=== PATIENT | female | born 1990 | race Caucasian/White ===

== ENCOUNTER 2022-11-01 05:22 | Inpatient (IN) | payer BC ==
[2022-10-31 10:05] LABS: Hemoglobin 13.3 g/dL (12.0-15.5); Platelet Count 140 10x3/uL (150-450)
[2022-10-31 10:46] LABS: Syphilis Antibody Nonreactive (Nonreactive); Syphilis Antibody Index 0.03 S/CO (<1.00 Non-Reactive)
[2022-10-31 10:47] LABS: HBSAg Index 0.09 S/CO (0-0.99); Hep B Surf Ag Non-Reactive S/CO (NonReactive)
[2022-11-01] MEDS ORDERED: Misoprostol 200 MCG TAB PR PRN (05:38)
[2022-11-01] MEDS ORDERED: Ondansetron PF 4 MG/2 ML Vial IVP PRN ×2 (05:38→06:58)
[2022-11-01] MEDS ORDERED: Bicitra 30 ML UDCUP PO PRN (05:38)
[2022-11-01] MEDS ORDERED: Promethazine HCl 25 MG/ML VIAL IM PRN ×2 (05:38→06:58)
[2022-11-01] MEDS ORDERED: hydrALAZINE 20 MG/ML VIAL SLOW IVP PRN (05:38)
[2022-11-01] MEDS ORDERED: Famotidine/PF 20 mg/2ml Vial SLOW IVP PRN (05:38)
[2022-11-01] MEDS ORDERED: Diphenoxylate HCl/Atropine Tablet PO PRN ×2 (05:38)
[2022-11-01] MEDS ORDERED: Carboprost 250 MCG/ML AMP IM PRN (05:38)
[2022-11-01] MEDS ORDERED: CEFAZOLIN 2 GM in Sodium Chloride 0.9% 100 ML IVPB SCH (05:38)
[2022-11-01 05:39] VITALS: BMI 42.7
[2022-11-01] MEDS ORDERED: NS w/ Oxytocin 30 units 500 ML IV SCH (05:45)
[2022-11-01] MEDS ORDERED: Moisturizing Cream (Eucerin) 113 GM JAR TOP PRN (06:58)
[2022-11-01] MEDS ORDERED: Ondansetron HCl/PF 4 MG/2 ML Vial IVP PRN (06:58)
[2022-11-01] MEDS ORDERED: Promethazine HCl 25 MG SUPP PR PRN (06:58)
[2022-11-01] MEDS ORDERED: Naloxone HCl 0.4 mg/ml Vial IVP PRN ×2 (06:58)
[2022-11-01] MEDS ORDERED: diphenhydrAMINE 50 MG/ML VIAL IVP PRN (06:58)
[2022-11-01] MEDS ORDERED: Naloxone HCl 0.4 mg/ml Vial IV PRN (06:58)
[2022-11-01] MEDS ORDERED: Fentanyl 100 MCG/2 ML VIAL SLOW IVP PRN (06:58)
[2022-11-01] MEDS ORDERED: Meperidine HCl/PF 25 MG/ML VIAL SLOW IVP PRN (06:58)
[2022-11-01] MEDS ORDERED: Communication Order-Pharmacy FS SCH (07:00)
[2022-11-01] MEDS ORDERED: Morphine PF 10 MG/10 ML VIAL ONE (07:08)
[2022-11-01] MEDS ORDERED: Oxytocin 10 UNITS/ML VIAL ONE (07:08)
[2022-11-01] MEDS ORDERED: ePHEDrine Sulfate 50 MG/10 ML VIAL ONE (07:08)
[2022-11-01] MEDS ORDERED: Phenylephrine 40 MG/NS 250 ML 250 ML ONE (07:08)
[2022-11-01] MEDS ORDERED: Ondansetron PF 4 MG/2 ML Vial ONE (07:08)
[2022-11-01] MEDS ORDERED: PHENYLEPHRINE-NS 100 MCG/ML 10 ML SYRINGE ONE (07:08)
[2022-11-01] MEDS ORDERED: Ketorolac Tromethamine 30 MG/ML VIAL ONE (07:08)
[2022-11-01] MEDS ORDERED: Simethicone Chewable 80 MG TAB PO PRN (11:58)
[2022-11-01] MEDS ORDERED: diphenhydrAMINE 25 MG CAP PO PRN (11:58)
[2022-11-01] MEDS ORDERED: Boostrix 0.5 ML (Tdap) VIAL (>/=7 yrs of age) IM ONE (11:58)
[2022-11-01] MEDS ORDERED: Methylergonovine 0.2 MG/ML VIAL IM PRN (11:58)
[2022-11-01] MEDS ORDERED: Acetaminophen 325 MG TAB PO PRN (11:58)
[2022-11-01] MEDS: Ketorolac Tromethamine 30 MG/ML VIAL IVP PRN ×2 (13:37→21:28)
[2022-11-01] MEDS ORDERED: Ketorolac Tromethamine 30 MG/ML VIAL IVP SCH (14:30)
[2022-11-01] MEDS: Docusate 100 MG CAP PO SCH (21:27)
[2022-11-01] MEDS: HYDROcodone/Acetaminophen 5/325 mg Tablet PO PRN (21:27)
[2022-11-01] MEDS: Lactated Ringer's 1,000 ML IV SCH ×2 (21:37→21:38)
[2022-11-01] MEDS: Ferrous Sulfate 325 MG TAB PO SCH (21:39)
[2022-11-02] MEDS: HYDROcodone/Acetaminophen 5/325 mg Tablet PO PRN ×6 (01:17→22:02)
[2022-11-02] MEDS: Lactated Ringer's 1,000 ML IV SCH ×2 (03:19→17:26)
[2022-11-02 05:15] LABS: Hemoglobin 11.1 g/dL (12.0-15.5); Mean Corpuscular HGB CONC 33.7 g/dL (32.0-36.0); Mean Corpuscular Hemoglobin 30.6 pg (27.0-33.0); Mean Corpuscular Volume 90.6 fl (81.6-98.3); Mean Platelet Volume 11.8 fl (7.4-10.4); Platelet Count 118 10x3/uL (150-450); RBC Distribution Width 12.7 % (11.5-14.5); Red Blood Cell (RBC) Count 3.63 10x6/uL (3.90-5.03); White Blood Cell (WBC) Count 7.6 10x3/uL (3.5-10.5)
[2022-11-02] MEDS: Ketorolac Tromethamine 30 MG/ML VIAL IVP PRN (05:28)
[2022-11-02] MEDS: Docusate 100 MG CAP PO SCH (08:40)
[2022-11-02] MEDS: Prenatal Vitamin 1 TAB PO SCH (08:40)
[2022-11-02] MEDS: Polyethylene Glycol 3350 17 GM Packet PO SCH (08:42)
[2022-11-02] MEDS: Ferrous Sulfate 325 MG TAB PO SCH ×2 (08:42→19:10)
[2022-11-02] MEDS: Ibuprofen 800 MG TAB PO SCH (18:09)
[2022-11-03] MEDS: Ibuprofen 800 MG TAB PO SCH ×3 (00:17→15:09)
[2022-11-03] MEDS: Docusate 100 MG CAP PO SCH ×2 (00:17→08:03)
[2022-11-03] MEDS: HYDROcodone/Acetaminophen 5/325 mg Tablet PO PRN ×2 (02:20→08:08)
[2022-11-03 07:50] VITALS: BP 134/86; TEMP 98
[2022-11-03] MEDS: Polyethylene Glycol 3350 17 GM Packet PO SCH (08:02)
[2022-11-03] MEDS: Prenatal Vitamin 1 TAB PO SCH (08:03)
[2022-11-03] MEDS: Lactated Ringer's 1,000 ML IV SCH (10:14)
[2022-11-03] MEDS: Ferrous Sulfate 325 MG TAB PO SCH (10:15)
== END 2022-11-03 15:30 | disposition home or self-care (01) | DRG 788 ==
LOC: CSHLD 05:22 → CSHPP 11:12
PROVIDERS: ADMIT Obstetrics & Gynecology; ATTEND Obstetrics & Gynecology
PROC: 10D00Z1 Extraction of Products of Conception, Low, Open Approach (ICD-10-PCS; principal; 2022-11-01)
PROC: 3E0P05Z Introduction of Adhesion Barrier into Female Reproductive, Open Approach (ICD-10-PCS; 2022-11-01)
DX: O36.63X0 Maternal care for excessive fetal growth, third trimester, not applicable or unspecified (principal); Z3A.39 39 weeks gestation of pregnancy; Z37.0 Single live birth; Z79.82 Long term (current) use of aspirin; O33.9 Maternal care for disproportion, unspecified; O32.8XX0 Maternal care for other malpresentation of fetus, not applicable or unspecified; O69.81X0 Labor and delivery complicated by cord around neck, without compression, not applicable or unspecified
CPT/HCPCS: 36415; 51702; 85014; 85018; 85027; 85049; 86780; 86850; 86900; 86901; 87340; J1885; J2274; J2405; J2590; J3490; S0028